=== PATIENT | male | born 1955 | race Caucasian/White ===

== ENCOUNTER 2017-01-05 07:01 | Day surgery (SDC) | payer BC ==
[~2017-01-05] VITALS: Ht 180.3 cm; Wt 78.0 kg
[~2017-01-05 07:01] MED LIST: LIDOCAINE 1% (10mg/ml) 2ml SDV INJ ONE; LR 1,000 ML IV SCH
[2017-01-05 07:18] VITALS: BP 103/66; PULSE 71; RESP 16; TEMP 97.7; O2SAT 97; Ht 180.3 cm; Wt 78.0 kg
[2017-01-05] MEDS: FLEET PHOSPHO-SODA 133 ML ENEMA RECTALLY PRN ×2 (07:39→08:01)
--- NOTE | 2017-01-05 08:51 | ANESPREOP ---
Anesthesia Record Date and Time DATE: 01/05/17 TIME: 08:49 Pre-Op Diagnosis family hx of colon ca Proposed Surgical Procedure COLONOSCOPY Allergies: Coded Allergies: No Known Drug Allergies (Verified Allergy, Unknown, 01/28/09) Ht/Wt/BMI Height: 5 ' 11.00 " Weight: 78.000 kg BMI: 24.0 kg/m2 Vital Signs Date Time Temp Pulse Resp B/P Pulse Ox O2 Delivery O2 Flow Rate FiO2 01/05/17 07:18 97.7 71 16 103/66 97 Room Air Medications Inpatient Medications Current Medications Medications (Trade) Dose Ordered Sig/Libertad Start Time Stop Time Status Last Admin Dose Admin Lactated Ringer's (Lactated Ringers) 1,000 ml @ 30 mls/hr Q24H 01/05/17 07:00 01/05/17 07:39 30 MLS/HR Sodium Biphosphate/ Sodium Phosphate (Fleet Enema) 1 enema PRN PRN 01/05/17 07:45 01/05/17 08:01 1 ENEMA No Active Prescriptions or Reported Meds Currently on Beta Jane: No Medical/Surgical History Anesthesia PMH: Denies: *Diabetes, Anesthesia Reactions (NO AIRWAY ISSUES), Arthritis, Blood Transfusion Reac, Cancer, Clotting Problems, Glaucoma, Malignant Hyperthermia, Renal Disease, Sleep Apnea, Thyroid Disease Smoking Status: Never smoker Has pt. smoked today?: No Use Chewing Tobacco?: No Second Hand Exposure: No Substance Use Type: does not use Substance last used: unknown Alcohol Intake: none Last Drink: unknown Past Surgical History Orthopedic Surgeries: Yes - BACK SURGERY Abdominal Surgeries: Genitourinary Surgeries: Cardiac Surgeries: Endocrine Surgeries: Reproductive Surgeries: Neurological Surgeries: Ear Surgeries: Nose Surgeries: Throat Surgeries: Other Surgeries: Yes - COLONOSCOPY Anesthesia Adverse Reactions: FOUND none Family Hx of Anesthesia Advers: none Hx of Motion Sickness: No Pertinent Findings EKG Rhythm: Sinus Rhythm Physical Exam Respiratory: Bilat breath sounds equal, Lungs clear Cardiovascular: FOUND Regular rate, rhythm, FOUND No murmur Airway Assessment Mallampati Score: II TMD: 3 Fingerbreadths Neck Extension: Good Overall Assessment: No Airway Concerns ASA: 1 Plan Anesthesia Plan: TIVA Discussion Discussed risks/options/alternatives of anesthesia and questions answered. Patient consents. Nursing pain assessment noted. Attestation Statement Prior to the delivery of any anesthetic medication, I examined the patient, developed the plan, obtained the patient's consent and discussed the risk and benefits of the procedure with the patient/guardian. STARR PENALOZA CRNA Jan 05, 2017 08:51
[2017-01-05] MEDS ORDERED: LIDOCAINE 1% (10mg/ml) 2ml SDV ONE (09:51)
[2017-01-05] MEDS ORDERED: PROPOFOL 500mg 50 ML IV ONE (09:51)
[2017-01-05 10:04] VITALS: BP 97/56; PULSE 66; RESP 14; TEMP 97.8; O2SAT 96
[2017-01-05 10:15] VITALS: BP 90/54; PULSE 60; RESP 12; O2SAT 95
[2017-01-05 10:30] VITALS: BP 95/53; PULSE 60; RESP 11; O2SAT 96
--- NOTE | 2017-01-05 10:44 | ANESPO ---
Post-Op Note Date 01/05/17 Time: 10:43 Status Pt Participated in Evaluation: Pt participated in person Vital Signs Date Time Temp Pulse Resp B/P Pulse Ox O2 Delivery O2 Flow Rate FiO2 01/05/17 10:30 60 11 95/53 96 Room Air 01/05/17 10:04 97.8 Respiratory Function: Airway patent, Regular respirations Cardiovascular Function: Regular pulse Pain Level Intensity: 0 Unable to Assess Pain Due To: Pt Sleeping Hydration: Taking po fluids, IV infusing Complications during Recovery None apparent Post-Anesthesia Notes pt. sun. well Follow-Up Instructions Instructions Per Surgeon Additional Information none STARR PENALOZA CRNA Jan 05, 2017 10:44
[2017-01-05 10:45] VITALS: BP 113/69; PULSE 56; RESP 16; O2SAT 98
--- NOTE | 2017-01-05 23:04 | OPNOTEF ---
DATE OF SERVICE 01/05/2017 SURGEON Yony Norton MD PREOPERATIVE DIAGNOSIS Family history of colon cancer within a first-degree relative. POSTOPERATIVE DIAGNOSIS Family history of colon cancer within a first-degree relative, normal colonoscopy. PROCEDURE Colonoscopy. ANESTHESIA TIVA BRIEF HISTORY/INDICATIONS Mr. Rdz is a 61-year-old gentleman who presents today to undergo a colonoscopy as a result of his family history for colon cancer within his father. It has been more than five years since his last endoscopic evaluation. For completeness please refer to notes included in the patient's chart. FINDINGS Upon colonoscopy, there was no evidence for angiodysplastic lesions, polyps, diverticula or gaudencio malignancies. DESCRIPTION OF PROCEDURE After informed consent was obtained, the patient was brought to the endoscopy suite and placed on the table in left lateral decubitus position. The patient subsequently underwent total intravenous anesthesia by the nurse student accounts coordinator per my request. A formal timeout was then performed. Next, a digital rectal examination was performed. Normal sphincter tone. No rectal masses were appreciated. An Olympus colonoscope was inserted in the anus and advanced with the lumen of the colon under direct visualization at all times until the cecum was ascertained. Triangulation of the tenia coli, ileocecal valve and appendiceal lumen were all visualized. The scope was then slowly withdrawn, again while maintaining visualization of the lumen at all times. As stated above, the entire colon was without evidence for angiodysplastic lesions, polyps, diverticula or gaudencio malignancies. The scope continued to be withdrawn until it was brought forth back into the rectal vault. A J-maneuver was then performed. No worrisome perianal pathology was noted. The scope was allowed to straighten and was withdrawn through the anal verge. The patient tolerated the procedure without difficulty and was sent back to the preop area in stable condition. Secondary to the absence of findings upon this colonoscopy I would recommend the patient have a repeat colonoscopy at a five-year interval given his family history for colon cancer in a first-degree relative. ALYSSA
== END 2017-01-05 10:57 | disposition home or self-care (01) ==
LOC: SCU 07:01
PROVIDERS: ATTEND Surgery
DX: Z12.11 Encounter for screening for malignant neoplasm of colon (principal); Z80.0 Family history of malignant neoplasm of digestive organs